=== PATIENT | male | born 1975 | race Caucasian/White ===

== ENCOUNTER → 2023-09-05 10:49 | Outpatient (CLI) | payer OTHER, SELFPAY ==
--- NOTE | 2023-09-30 17:41 | DIAB.INIT ---
Initial Diabetes Education Assessment Name: Cameron Perdomo Date: 09/05/23 Time: 1105-1130a Dx: T1DM Provider: Cameron presents for initial visit. Reports FH of DM with maternal gma, mother, and sister. Also reports PMH of dx over 40 years ago. Would like Dexcom education. Arrives with G6 package, however it is . Also, his phone is not currently compatible with Dexcom apps. RD has a spare cruise coordinator, however no current G7 sensors available in clinic. Wants to know differences between different CGM systems, ambar vs cruise coordinator use. Has endo visit in October. Diabetes Medications: 40u Glargine 10u Lispro TID Pertinent Labs: None available Past Medical History: GERD, HTN, T1DM Intervention: This participant was very receptive. Provided appropriate educational handouts. Discussed the following topics: Discussed CGM systems and pros/cons Reviewed difference btwn cruise coordinator and ambar use for G7 Discussed plan of contacting provider for updated rx on CGM Reviewed differences between G6 and G7 Goals: Contact provider for G7 sensors F/u with RD on Friday for starter kit G7 Follow-up: REX OSEGUERA follow-up in 1 week Ruma Potter RDN, ANA ROSA Certified Diabetes Care and [employer] Tender P: [phone] Thank you for this referral
== END ==
PROVIDERS: PCP Family Medicine; Referring Provider Family Medicine
DX: E10.8 Type 1 diabetes mellitus with unspecified complications (principal); Z71.3 Dietary counseling and surveillance
CPT/HCPCS: G0108